=== PATIENT | male | born 1985 | race Caucasian/White ===

== ENCOUNTER 2017-07-19 21:13 | Emergency (ER) | payer MEDICARE, OTHER ==
[~2017-07-19] VITALS: Ht 182.9 cm; Wt 220.0 kg
[2017-07-19] MEDS ORDERED: MONT10TA21 PO (21:33)
[2017-07-19] MEDS ORDERED: METF500T4 PO (21:33)
[2017-07-19] MEDS ORDERED: OXCA300T PO (21:33)
[2017-07-19] MEDS ORDERED: SIMV-261 PO (21:33)
[2017-07-19] MEDS ORDERED: DIVA500T35 PO ×2 (21:33)
[2017-07-19 21:38] LABS: GLUCOSE,POINT OF CARE 218 MG/DL (70-110)
[2017-07-20 00:31] VITALS: BP 131/85
== END 2017-07-20 00:33 | disposition home or self-care (01) ==
LOC: EMS 21:14
DX: F41.9 Anxiety disorder, unspecified (principal); E11.9 Type 2 diabetes mellitus without complications; E78.00 Pure hypercholesterolemia, unspecified; F20.9 Schizophrenia, unspecified; I10 Essential (primary) hypertension; J45.909 Unspecified asthma, uncomplicated
CPT/HCPCS: 82962; 99284